=== PATIENT | male | born 1975 | race Caucasian/White ===

== ENCOUNTER 2017-08-08 21:30 | Emergency (ER) | payer BC ==
[2017-08-08] MEDS ORDERED: Ondansetron 4 MG/2 ML SDV IVPUSH ONE (22:07)
[2017-08-08] MEDS ORDERED: Sodium Chloride 0.9% 1,000 ML IV ONE (22:07)
--- NOTE | 2017-08-08 22:16 | EDM.PDOC ---
ED HPI GENERAL MEDICAL PROBLEM - General Chief Complaint: Abdominal Pain Stated Complaint: POSSIBLE FOOD POISONING Time Seen by Provider: 08/08/17 21:47 Source of Information: Reports: Patient, Family () History Limitations: Reports: No Limitations - History of Present Illness INITIAL COMMENTS - FREE TEXT/NARRATIVE: The patient states that he and his just returned from a trip to the [facility] from 07/27/2017 through 08/06/2017. He states that he ate a small meal on the plane from the [facility] to [facility], then ate at [employer] and had some noodle soup while at the [facility]. He states that he had a chicken and pasta dish for dinner on the plane from [facility] to [place], then for breakfast they were served a bee pocket-like dish that had scrambled eggs in it. The patient's did not like that dish, therefore the ate his own plus most of hers. The patient states that he developed nausea yesterday morning, while still on the flight from [facility], about 3 hours before getting to [place]. Once on the ground in [place], he developed dry heaves. His bowel movements became thinner and watery, and eventually he noticed blood in the watery bowel movements. He also developed abdominal cramps. He has not vomited, and he has not had a fever. The patient's has also had abdominal discomfort, but no vomiting or diarrhea. No prior similar symptoms. The patient states that he tried to avoid local food while in the [facility]. No recent antibiotics. He states that he did NOT take malaria prophylaxis while there. Since becoming ill, he has taken ibuprofen and one dose (2 tablets) of Imodium, which did not help with his diarrhea. The patient does not have a PCP. Treatments NURSE RN BSN: Reports: Other (see below) Other Treatments NURSE RN BSN: immodium;motrin Lower Abdomen Pain Score (Numeric/FACES): 7 - Related Data Allergies Allergy/AdvReac Type Severity Reaction Status Date / Time No Known Allergies Allergy Verified 08/08/17 21:42 Home Meds: Home Meds . [No Known Home Meds] 08/08/17 [History] Past Medical History Genitourinary History: Reports: Renal Calculus Psychiatric History: Reports: Mood Swings, Other (See Below) (Insomnia) - Past Surgical History GI Surgical History: Reports: Hernia, Inguinal (right) Musculoskeletal Surgical History: Reports: Arthroscopic Knee (left ACL repair) Social & Family History - Tobacco Use Smoking Status *Q: Former Smoker - Caffeine Use Caffeine Use: Reports: Coffee, Tea - Alcohol Use Alcohol Use History: Yes Alcohol Use Frequency: Socially - Recreational Drug Use Recreational Drug Use: No - Living Situation & Occupation Living situation: Reports: , with Spouse Occupation: Employed (oiler and greaser) ED ROS GENERAL - Review of Systems Review Of Systems: ROS reveals no pertinent complaints other than HPI. ED EXAM, GI/ABD - Physical Exam Exam: See Below Exam Limited By: No Limitations General Appearance: Alert, WD/WN, No Apparent Distress Eyes: Bilateral: Normal Appearance, EOMI Ears: Normal External Exam, Hearing Grossly Normal Nose: Normal Inspection, No Blood Throat/Mouth: Normal Inspection, Normal Lips, Normal Voice, No Airway Compromise Head: Atraumatic, Normocephalic Neck: Normal Inspection, Full Range of Motion Respiratory/Chest: No Respiratory Distress, Lungs Clear, Normal Breath Sounds, No Accessory Muscle Use Cardiovascular: Normal Peripheral Pulses, Regular Rate, Rhythm, No Edema, No Gallop, No JVD, No Murmur, No Rub GI/Abdominal Exam: Normal Bowel Sounds, Soft, Non-Tender, No Organomegaly, No Distention, No Abnormal Bruit, No Mass (Male) Exam: Deferred Rectal (Males) Exam: Deferred Back Exam: Normal Inspection, Full Range of Motion, NT Extremities: Normal Inspection, Normal Range of Motion, No Pedal Edema, Normal Capillary Refill Neurological: Alert, Oriented, Normal Cognition, No Motor/Sensory Deficits Psychiatric: Normal Affect Skin Exam: Warm, Dry, Intact, Normal Color, No Rash Course - Vital Signs Last Recorded V/S: Last Vital Signs Temp 36.9 C 08/08/17 21:41 Pulse 88 08/08/17 21:41 Resp 20 08/08/17 21:41 BP 105/76 08/08/17 21:41 Pulse Ox 98 08/08/17 21:41 Orthostatic Blood Pressure [ 116/91 Standing] Orthostatic Blood Pressure [ 119/77 Supine] - Orders/Labs/Meds Orders: Active Orders 24 hr Category Date Time Status Orthostatic Vital Signs [RC] STAT Care 08/08/17 22:05 Active CULTURE STOOL + SHIGATOX [RM] Stat Lab 08/08/17 22:15 Ordered NOROVIRUS GROUP 1 & 2 RT-PCR Stat Lab 08/08/17 22:15 Received ROTAVIRUS DIRECT ANTIGEN STOOL [OP] Stat Lab 08/08/17 22:15 COMP WBC, STOOL [OP] Stat Lab 08/08/17 22:15 COMP Loperamide [Imodium] Med 08/09/17 00:21 Once 2 mg PO ONETIME ONE Magnesium Sulfate/Water [Magnesium Sulfate 2 GM in Med 08/08/17 23:24 Active Water 50 ML] 2 gm Premix Bag 1 bag IV ONETIME Medication Orders Magnesium Sulfate 2 gm/ Premix 50 mls @ 50 mls/hr IV ONETIME STA Stop: 08/09/17 00:23 Last Admin: 08/08/17 23:27 Dose: 50 mls/hr Labs: Laboratory Tests 08/08/17 08/08/17 08/08/17 Range/Units 22:25 22:25 22:27 WBC 6.07 (4.23-9.07) K/mm3 RBC 5.36 (4.63-6.08) M/mm3 Hgb 15.6 (13.7-17.5) gm/L Hct 44.5 (40.1-51.0) % MCV 83.0 (79.0-92.2) fl MCH 29.1 (25.7-32.2) pg MCHC 35.1 (32.2-35.5) g/dl RDW Std Deviation 39.0 (35.1-43.9) fL Plt Count 167 (163-337) K/mm3 MPV 10.3 (9.4-12.3) fl Neutrophils % (Manual) 70 H (40-60) % Band Neutrophils % 1 (0-10) % Lymphocytes % (Manual) 24 (20-40) % Atypical Lymphs % 0 % Monocytes % (Manual) 5 (2-10) % Eosinophils % (Manual) 0 L (0.8-7.0) % Basophils % (Manual) 0 L (0.2-1.2) Platelet Estimate Adequate RBC Morph Comment Normal Sodium 135 L (136-145) mEq/L Potassium 3.5 (3.5-5.1) mEq/L Chloride 101 (98-107) mEq/L Carbon Dioxide 23 (21-32) mEq/L Anion Gap 14.5 (5-15) BUN 11 (7-18) mg/dL Creatinine 1.1 (0.7-1.3) mg/dL Est Cr Clr Drug Dosing 92.17 mL/min Estimated GFR (MDRD) > 60 (>60) mL/min BUN/Creatinine Ratio 10.0 L (14-18) Glucose 106 (74-106) mg/dL Lactic Acid 0.6 (0.4-2.0) mmol/L Calcium 9.1 (8.5-10.1) mg/dL Magnesium 1.6 L (1.8-2.4) mg/dl Total Bilirubin 0.6 (0.2-1.0) mg/dL AST 18 (15-37) U/L ALT 28 (16-63) U/L Alkaline Phosphatase 72 (46-116) U/L Total Protein 7.4 (6.4-8.2) g/dl Albumin 3.8 (3.4-5.0) g/dl Globulin 3.6 gm/dL Albumin/Globulin Ratio 1.1 (1-2) Lipase 125 (73-393) U/L Meds: Medications Generic Name Dose Route Start Last Admin Trade Name Freq PRN Reason Stop Dose Admin Magnesium Sulfate 2 gm/ Premix 50 mls @ 50 mls/hr 08/08/17 23:24 08/08/17 23: 27 IV 08/09/17 00:23 50 mls/hr ONETIME STA Administration Discontinued Medications Generic Name Dose Route Start Last Admin Trade Name Freq PRN Reason Stop Dose Admin Sodium Chloride 1,000 mls @ 999 mls/hr 08/08/17 22:07 08/08/17 22:23 Normal Saline IV 08/08/17 23:07 999 mls/hr ONETIME ONE Administration Ondansetron HCl 4 mg 08/08/17 22:07 08/08/17 22:23 Zofran IVPUSH 08/08/17 22:08 4 mg ONETIME ONE Administration - Re-Assessments/Exams Free Text/Narrative Re-Assessment/Exam: 08/08/17 22:08 The patient is not orthostatic. 08/08/17 22:26 Based on the patient's history and physical examination, I am strongly suspicious that it is the scrambled eggs in the breakfast that he was served on his flight from [place] that is the culprit, however, viral etiology or even some other bacteria that he picked up while in the [facility] as possible. I have ordered a stool culture, stool WBCs, rotavirus, and Norvasc, in addition to blood work. The patient is receiving IV fluid and Zofran. Antibiotics are contraindicated. 08/08/17 23:24 The patient's magnesium level has returned mildly depressed at 1.6. I ordered 1 g Mg-rider be given over 30 minutes. The remainder of the patient's labs are unremarkable. Rotavirus is negative, although Norovirus, stool WBCs, and stool culture are still pending. 08/09/17 00:22 The patient states that he is feeling much better. As he only took a single dose of Imodium, he will receive 2 mg tablet prior to discharge, and can continue to take this as needed. He will receive an [facility] prescription for Zofran. I will refer him to Dr. Renner for follow-up. Departure - Departure Time of Disposition: 00:23 Disposition: Home, Self-Care 01 Condition: Fair Clinical Impression: Gastroenteritis - Discharge Information Referrals: PCP,Kalani [Primary Care Provider] - Rosita Renner [Physician] - Forms: ED Department Discharge Additional Instructions: You were seen in the emergency room for nausea, dry heaves, abdominal cramps, and watery diarrhea with blood in it, after returning from the [facility]. Workup in the ER included blood work, stool studies, and positional blood pressure checks. While some of the stool studies are still pending, the remainder of your workup was unremarkable, with the exception of your magnesium level being mildly low at 1.6. You are not dehydrated. You were given IV magnesium replacement in the ER. Take one tablet (2 mg) of [id number] Imodium (loperamide) after each loose bowel movement, to a maximum of 8 tablets (16 mg) within a 24-hour period. Dissolve one tablet of the anti-nausea medicine Zofran on your tongue up to every 8 hours, as needed for nausea/vomiting. Eat a bland diet only if you are hungry. Make sure that you stay adequately hydrated. Gatorade or Powerade are best. Follow-up with Dr. Renner in the clinic as needed. If any other problems, please do not hesitate to return to the ER. - My Orders Last 24 Hours: My Active Orders 08/08/17 22:05 Orthostatic Vital Signs [RC] STAT 08/08/17 22:15 CULTURE STOOL + SHIGATOX [RM] Stat NOROVIRUS GROUP 1 & 2 RT-PCR Stat ROTAVIRUS DIRECT ANTIGEN STOOL [OP] Stat WBC, STOOL [OP] Stat 08/08/17 23:24 Magnesium Sulfate/Water [Magnesium Sulfate 2 GM in Water 50 ML] 2 gm Premix Bag 1 bag IV ONETIME 08/09/17 00:21 Loperamide [Imodium] 2 mg PO ONETIME ONE - Assessment/Plan Last 24 Hours: My Active Orders 08/08/17 22:05 Orthostatic Vital Signs [RC] STAT 08/08/17 22:15 CULTURE STOOL + SHIGATOX [RM] Stat NOROVIRUS GROUP 1 & 2 RT-PCR Stat ROTAVIRUS DIRECT ANTIGEN STOOL [OP] Stat WBC, STOOL [OP] Stat 08/08/17 23:24 Magnesium Sulfate/Water [Magnesium Sulfate 2 GM in Water 50 ML] 2 gm Premix Bag 1 bag IV ONETIME 08/09/17 00:21 Loperamide [Imodium] 2 mg PO ONETIME ONE
[2017-08-08] MEDS ORDERED: Magnesium Sulfate/Water 2 GM in Premix Bag 1 BAG IV STA (23:24)
[2017-08-09] MEDS ORDERED: Loperamide 2 MG Cap PO ONE (00:21)
== END 2017-08-09 00:40 | disposition home or self-care (01) ==
LOC: JD.ED 21:30
DX: K52.9 Noninfective gastroenteritis and colitis, unspecified (principal); Z87.442 Personal history of urinary calculi; Z87.891 Personal history of nicotine dependence
CPT/HCPCS: 36415; 80053; 83605; 83690; 83735; 85025; 87046; 87425; 87798; 89055; 96361; 96365; 96375; 99284; A9270; J2405; J7040; J3475

== ENCOUNTER 2017-08-10 08:52 | Emergency (ER) | payer BC ==
[2017-08-10] MEDS ORDERED: Sodium Chloride 0.9% 10 ML Syringe FLUSH PRN (09:38)
[2017-08-10] MEDS ORDERED: Sodium Chloride 0.9% 1,000 ML IV STA (09:38)
[2017-08-10] MEDS ORDERED: Ondansetron 4 MG/2 ML SDV IVPUSH ONE (09:38)
[2017-08-10] MEDS ORDERED: HYDROmorphone 0.5 MG/0.5 ML SYRINGE IVPUSH ONE (09:40)
--- NOTE | 2017-08-10 10:38 | EDM.PDOC ---
ED HPI GENERAL MEDICAL PROBLEM - General Chief Complaint: Abdominal Pain Stated Complaint: ABDOMINAL PAIN Time Seen by Provider: 08/10/17 09:19 Source of Information: Reports: Patient, Family History Limitations: Reports: No Limitations - History of Present Illness INITIAL COMMENTS - FREE TEXT/NARRATIVE: The patient presents with severe stomach cramps and bloody diarrhea. He recently returned form a trip to the [facility]. He landed in [place] a few days ago and he developed stomach cramps and diarrhea. He traveled back here and continues to have troubles with severe abdominal cramps, nausea, vomiting and bloody diarrhea. He was seen by Dr Munoz 2 days ago and a complete work up was done. His labs looked good except for a low magnesium and he was given some magnesium here. Stool studies were done but pending. Rotavirus was negative. He continues to have the same symptoms. He has no fever, chills, cough, chest pain or shortness of breath. He did eat local food and drink. No one else is sick. Onset: Gradual Duration: Day(s): Location: Reports: Abdomen Quality: Reports: Other (Cramps) Severity: Severe Improves with: Reports: None Worsens with: Reports: None Associated Symptoms: Reports: Nausea/Vomiting. Denies: Chest Pain, Cough, Fever /Chills, Headaches, Shortness of Breath Treatments TWIST MAKER: Reports: Other (see below) Other Treatments TWIST MAKER: Immodium, zofran Abdominal Pain Score (Numeric/FACES): 8 - Related Data Allergies Allergy/AdvReac Type Severity Reaction Status Date / Time No Known Allergies Allergy Verified 08/08/17 21:42 Home Meds: Home Meds Ciprofloxacin HCl [Cipro] 500 mg PO BID #6 tablet 08/10/17 [Rx] Hydrocodone/Acetaminophen [Hydrocodon-Acetaminophen 5-325] 1 - 2 each PO Q6HR PRN #20 tablet 08/10/17 [Rx] Past Medical History Genitourinary History: Reports: Renal Calculus Musculoskeletal History: Reports: Other (See Below) Other Musculoskeletal History: ACL repair Psychiatric History: Reports: Mood Swings, Other (See Below) - Past Surgical History HEENT Surgical History: Reports: Other (See Below) Other HEENT Surgeries/Procedures: wisdom teeth extracted GI Surgical History: Reports: Hernia, Inguinal Musculoskeletal Surgical History: Reports: Arthroscopic Knee Social & Family History - Tobacco Use Smoking Status *Q: Never Smoker - Caffeine Use Caffeine Use: Reports: Coffee - Recreational Drug Use Recreational Drug Use: No - Living Situation & Occupation Living situation: Reports: , with Spouse Occupation: Employed (rubber factory worker) ED ROS GENERAL - Review of Systems Review Of Systems: See Below Constitutional: Reports: No Symptoms HEENT: Reports: No Symptoms Respiratory: Reports: No Symptoms Cardiovascular: Reports: No Symptoms Endocrine: Reports: No Symptoms GI/Abdominal: Reports: Abdominal Pain, Bloody Stool, Diarrhea, Nausea, Vomiting : Reports: No Symptoms Musculoskeletal: Reports: No Symptoms Skin: Reports: No Symptoms Neurological: Reports: No Symptoms ED EXAM, GI/ABD - Physical Exam Exam: See Below Exam Limited By: No Limitations General Appearance: Alert, Moderate Distress Ears: Normal External Exam Nose: Normal Inspection Head: Atraumatic, Normocephalic Neck: Normal Inspection Respiratory/Chest: No Respiratory Distress, Lungs Clear, Normal Breath Sounds Cardiovascular: Regular Rate, Rhythm, No Edema, No Murmur GI/Abdominal Exam: Soft, No Organomegaly, No Mass, Tender (Mild generalized tenderness) Back Exam: Normal Inspection Extremities: Normal Inspection Neurological: Alert, Oriented, No Motor/Sensory Deficits Course - Vital Signs Last Recorded V/S: Last Vital Signs Temp 98.6 F 08/10/17 09:15 Pulse 76 08/10/17 09:15 Resp 18 08/10/17 09:15 BP 132/90 08/10/17 09:15 Pulse Ox 98 08/10/17 09:15 - Orders/Labs/Meds Orders: Active Orders 24 hr Category Date Time Status Peripheral IV Care [RC] . DIRECTED Care 08/10/17 09:39 Active UA W/MICROSCOPIC [URIN] Stat Lab 08/10/17 10:28 Ordered Sodium Chloride 0.9% [Normal Saline] 1,000 ml Med 08/10/17 12:15 Active IV ASDIRECTED Sodium Chloride 0.9% [Saline Flush] Med 08/10/17 09:38 Active 10 ml FLUSH ASDIRECTED PRN ED Antiemetic Medication Reflex [OM.PC] Stat Oth 08/10/17 09:39 Ordered Peripheral IV Insertion Adult [OM.PC] Stat Oth 08/10/17 09:38 Ordered Medication Orders Sodium Chloride (Normal Saline) 1,000 mls @ 150 mls/hr IV ASDIRECTED [facility] Last Admin: 08/10/17 12:06 Dose: 150 mls/hr Sodium Chloride (Saline Flush) 10 ml FLUSH ASDIRECTED PRN PRN Reason: Keep Vein Open Last Admin: 08/10/17 09:55 Dose: 10 ml Labs: Laboratory Tests 08/10/17 08/10/17 08/10/17 Range/Units 09:30 09:30 10:28 WBC 5.25 (4.23-9.07) K/mm3 RBC 4.96 (4.63-6.08) M/mm3 Hgb 14.6 (13.7-17.5) gm/L Hct 41.0 (40.1-51.0) % MCV 82.7 (79.0-92.2) fl MCH 29.4 (25.7-32.2) pg MCHC 35.6 H (32.2-35.5) g/dl RDW Std Deviation 38.4 (35.1-43.9) fL Plt Count 170 (163-337) K/mm3 MPV 10.5 (9.4-12.3) fl Neut % (Auto) 61.4 (34.0-67.9) % Lymph % (Auto) 18.3 L (21.8-53.1) % [place] % (Auto) 18.9 H (5.3-12.2) % Eos % (Auto) 1.0 (0.8-7.0) Baso % (Auto) 0.4 (0.1-1.2) % Neut # (Auto) 3.23 (1.78-5.38) K/mm3 Lymph # (Auto) 0.96 L (1.32-3.57) K/mm3 [place] # (Auto) 0.99 H (0.30-0.82) K/mm3 Eos # (Auto) 0.05 (0.04-0.54) K/mm3 Baso # (Auto) 0.02 (0.01-0.08) K/mm3 Manual Slide Review Normal smear Sodium 136 (136-145) mEq/L Potassium 3.3 L (3.5-5.1) mEq/L Chloride 102 (98-107) mEq/L Carbon Dioxide 23 (21-32) mEq/L Anion Gap 14.3 (5-15) BUN 8 (7-18) mg/dL Creatinine 1.0 (0.7-1.3) mg/dL Est Cr Clr Drug Dosing 101.39 mL/min Estimated GFR (MDRD) > 60 (>60) mL/min BUN/Creatinine Ratio 8.0 L (14-18) Glucose 121 H (74-106) mg/dL Calcium 8.9 (8.5-10.1) mg/dL Magnesium 1.5 L (1.8-2.4) mg/dl Total Bilirubin 0.7 (0.2-1.0) mg/dL AST 25 (15-37) U/L ALT 29 (16-63) U/L Alkaline Phosphatase 64 (46-116) U/L Total Protein 6.6 (6.4-8.2) g/dl Albumin 3.2 L (3.4-5.0) g/dl Globulin 3.4 gm/dL Albumin/Globulin Ratio 0.9 L (1-2) Lipase 91 (73-393) U/L Urine Color Dark yellow (Yellow) Urine Appearance Clear (Clear) Urine pH 6.0 (5.0-8.0) Ur Specific [place] 1.020 (1.005-1.030) Urine Protein Trace H (Negative) Urine Glucose (UA) Negative (Negative) Urine Ketones Negative (Negative) Urine Occult Blood Negative (Negative) Urine Nitrite Negative (Negative) Urine Bilirubin 1+ H (Negative) Urine Urobilinogen 0.2 (0.2-1.0) Ur Leukocyte Esterase Negative (Negative) Urine RBC Not seen (0-5) /hpf Urine WBC 0-5 (0-5) /hpf Ur Epithelial Cells Not seen (0-5) /hpf Urine Bacteria Few (FEW) /hpf Urine Mucus Many H (FEW) /hpf Meds: Medications Generic Name Dose Route Start Last Admin Trade Name Freq PRN Reason Stop Dose Admin Sodium Chloride 1,000 mls @ 150 mls/hr 08/10/17 12:15 08/10/17 12:06 Normal Saline IV 150 mls/hr ASDIRECTED [facility] Administration Sodium Chloride 10 ml 08/10/17 09:38 08/10/17 09:55 Saline Flush FLUSH 10 ml ASDIRECTED PRN Administration Keep Vein Open Discontinued Medications Generic Name Dose Route Start Last Admin Trade Name Freq PRN Reason Stop Dose Admin Fentanyl 100 mcg 04/30/18 11:53 08/10/17 11:57 Sublimaze IVPUSH 08/10/17 11:54 100 mcg ONETIME ONE Administration Hydromorphone HCl 0.5 mg 08/10/17 09:40 08/10/17 09:53 Dilaudid IVPUSH 08/10/17 09:41 0.5 mg ONETIME ONE Administration Sodium Chloride 1,000 mls @ 1,000 mls/hr 08/10/17 09:38 08/10/17 09:53 Normal Saline IV 08/10/17 10:37 1,000 mls/hr .BOLUS STA Administration Sodium Chloride 1,000 mls @ 1,000 mls/hr 08/10/17 10:43 08/10/17 10:59 Normal Saline IV 08/10/17 11:42 1,000 mls/hr ONETIME ONE Administration Ondansetron HCl 4 mg 08/10/17 09:38 08/10/17 09:53 Zofran IVPUSH 08/10/17 09:39 4 mg ONETIME ONE Administration - Re-Assessments/Exams Free Text/Narrative Re-Assessment/Exam: 08/10/17 10:40 I ordered an IV NS 1L bolus, zofran 4mg IV, dilaudid 0.5mg IV, labs, UA and I will try to get the results of the stool studies. 08/10/17 12:41 His CBC was negative. His K was a little low at 3.3. His glucose was elevated at 121. His magnesium was low at 1.5. His UA was negative. I called our micro department and results should be back from his cultures in a few hours. I gave him another liter of fluids and some dilaudid 0.5mg IV. Liya from micro called and the stool sample was positive for salmonela. I will need to treat him with some cipro. Departure - Departure Time of Disposition: 12:50 Disposition: Home, Self-Care 01 Condition: Good Clinical Impression: Salmonella enteritis - Discharge Information Prescriptions: Hydrocodone/Acetaminophen [Hydrocodon-Acetaminophen 5-325] 1 - 2 each PO Q6HR PRN #20 tablet PRN Reason: Pain Ciprofloxacin HCl [Cipro] 500 mg PO BID #6 tablet Referrals: PCP,None [Primary Care Provider] - 1 Week Rosita Renner [Physician] - 1 Week Forms: ED Department Discharge Additional Instructions: Take the cipro 2 times per day for 3 days. Take the hydrocodone as needed for pain and the zofran for nausea and vomiting. Drink plenty of fluids and advance your diet as tolerated. Please return if you are worse. - My Orders Last 24 Hours: My Active Orders 08/10/17 09:38 Sodium Chloride 0.9% [Saline Flush] 10 ml FLUSH ASDIRECTED PRN Peripheral IV Insertion Adult [OM.PC] Stat 08/10/17 09:39 Peripheral IV Care [RC] . DIRECTED ED Antiemetic Medication Reflex [OM.PC] Stat 08/10/17 10:28 UA W/MICROSCOPIC [URIN] Stat 08/10/17 12:15 Sodium Chloride 0.9% [Normal Saline] 1,000 ml IV ASDIRECTED - Assessment/Plan Last 24 Hours: My Active Orders 08/10/17 09:38 Sodium Chloride 0.9% [Saline Flush] 10 ml FLUSH ASDIRECTED PRN Peripheral IV Insertion Adult [OM.PC] Stat 08/10/17 09:39 Peripheral IV Care [RC] . DIRECTED ED Antiemetic Medication Reflex [OM.PC] Stat 08/10/17 10:28 UA W/MICROSCOPIC [URIN] Stat 08/10/17 12:15 Sodium Chloride 0.9% [Normal Saline] 1,000 ml IV ASDIRECTED
[2017-08-10] MEDS ORDERED: Sodium Chloride 0.9% 1,000 ML IV ONE (10:43)
[2017-08-10] MEDS ORDERED: fentaNYL 100 MCG/2 ML SDV IVPUSH ONE (11:53)
[2017-08-10] MEDS ORDERED: Sodium Chloride 0.9% 1,000 ML IV SCH (12:15)
== END 2017-08-10 13:20 | disposition home or self-care (01) ==
LOC: JD.ED 08:52
DX: A02.0 Salmonella enteritis (principal)
CPT/HCPCS: 36415; 80053; 81001; 83690; 83735; 85025; 96361; 96374; 96375; 99284; J1170; J2405; J3010; J7040; J7050